=== PATIENT | male | born 1955 | race African-American/Black ===

== ENCOUNTER 2019-07-29 09:34 | Inpatient (IN) ==
--- NOTE | 2019-07-29 09:54 | PROVIDER DOCUMENTATION ---
HPI-Neurological Disorder - General Chief Complaint: Stroke-Like Symptoms Stated Complaint: STROKE SX Time Seen by Provider: 07/29/19 09:40 Source: patient Allergies/Adverse Reactions: Patient Allergies Allergy/AdvReac Type Severity Reaction Status Date / Time No Known Allergies Allergy Verified 03/21/16 01:04 Home Medications: Home Medication List Medication Instructions Recorded Confirmed Last Taken Type Irbesartan [Avapro] 300 mg PO DAILY #30 tablet 11/18/15 03/21/16 11/28/15 Rx Albuterol Sulfate Inhaler 2 puff INH Q6H PRN PRN #1 inhaler 11/29/15 03/21/16 Unknown Rx [Ventolin Hfa] Aspirin 325 mg PO DAILY 11/29/15 03/21/16 01/16/16 History Amlodipine/Valsartan/Hcthiazid 1 tab DAILY 12/06/15 03/21/16 01/16/16 History [Exforge Hct 10-160-12.5 mg Tab] Amlodipine/Valsartan/Hcthiazid 1 each PO DAILY #30 tablet 01/16/16 03/21/16 U nknown Rx [Fkbms-Wqzdb-Vefd 10-160-12.5MG] Hydrocodone/APAP 5 mg/325 mg 1 tab PO DIRECTED 01/16/16 03/21/16 Unknown History [[place]-5] Doxycycline 100 mg PO BID #20 tablet 02/19/16 03/21/16 Unknown Rx Ibuprofen [Motrin] 800 mg PO Q8H PRN PRN #20 tablet 02/19/16 03/21/16 Unknown Rx Tramadol [Ultram] 50 mg PO Q6H PRN PRN #30 tablet 02/19/16 03/21/16 Unknown Rx Cyclobenzaprine [Flexeril] 10 mg PO TID PRN #20 tablet 03/21/16 Unknown Rx Hydrocodone/Acetaminophen [[place] 1 each PO Q4-6H PRN PRN #12 tablet 03/21/16 Unknown Rx 5-325 Tablet] Meloxicam [Mobic] 15 mg PO DAILY PRN #30 tablet 03/21/16 Unknown Rx Clonidine [Catapres] 0.1 mg PO DAILY #30 tablet 08/07/16 Unknown Rx Metronidazole [Flagyl] 500 mg PO BID #14 tablet 08/07/16 Unknown Rx Sulfamethoxazole/Trimethoprim 1 each PO BID #10 tablet 08/07/16 Unknown Rx [Bactrim Ds Tablet] Diphenoxylate/Atropine [Lomotil] 1 each PO BID #8 tablet 11/18/16 Unknown Rx Amlodipine [Norvasc] 5 mg PO DAILY #60 tab 10/31/17 Unknown Rx Methocarbamol [Robaxin] 500 mg PO BID #30 tab 10/31/17 Unknown Rx Prednisone 20 mg PO DIRECTED #18 tab 05/10/19 Unknown Rx - History of Present Illness-Neuro Nature of Presenting Problem: 64 YOM PRESENTS WITH C/O R FACIAL DROOP, R WEAKNESS, SLURRED SPEECH THAT BEGAN AFTER A SYNCOPAL EPISODE ON THURSDAY. HE DENIES HITTING HIS HEAD. HE REPORTS HE IS ON BLOOD THINNERS NOT SURE WHICH ONE AND THERE IS NONE OTHER THAN ASA LISTED ON HIS HOME MEDICATIONS. PMH INCLUDES HTN. HE DENIES HEADACHE, N/V, CP, SOB. HE DOES REPORT MULTIPLE FALLS AND LOSS OF BALANCE SINCE THURSDAY Severity: reports: moderate Onset/Duration: reports: 3 days ago (THURSDAY) Timing: reports: still present Context: reports: facial droop, other (SYNCOPAL EPISODE) Character of Altered Mental Status: reports: unchanged from baseline Any recent trauma/injury?: reports: none Character of Deficits: reports: impaired speech, falling New weakness or altered sensation location:: reports: RUE, RLE, right facial Cognitive Baseline: alert, oriented x3 Gait Baseline: walks without assistance Associated Symptoms: reports: denies symptoms Similar Symptoms Previously?: No Recently seen or treated by another doctor?: No Review of Systems - Adult - REVIEW OF SYSTEMS - ADULT Constitutional: reports: no symptoms reported. denies: see HPI, chills, fever, fatique, night sweats, weight gain, weight loss, other Eyes: reports: no symptoms reported. denies: see HPI, discharge, dry eyes, decreased vision, blurred vision, double vision, eye pain, redness, other Ears, Nose, Mouth & Throat: reports: no symptoms reported. denies: see HPI, ear discharge, ear pain, hearing loss, tinnitus, epistaxis, sinus problem, nose pain, loose teeth, mouth/dental pain, mouth swelling, hoarseness, throat pain, throat swelling, other Cardiovascular: reports: no symptoms reported. denies: see HPI, chest pain, edema, heart murmur, irregular heart rate, orthopnea, palpitations, poor circulation, PND, syncope, other Respiratory: reports: no symptoms reported. denies: see HPI, chronic cough, cou gh, dyspnea on exertion, excessive sputum production, hemoptysis, pleurisy, shortness of breath, wheezing, other Gastrointestinal: reports: no symptoms reported. denies: see HPI, abdominal pain, hematemesis, constipation, diarrhea, difficulty swallowing, frequent heartburn, nausea, poor appetite, rectal bleeding, vomiting, other Genitourinary: reports: no symptoms reported. denies: see HPI, dysuria, discharge, frequency, flank pain, frequent UTI's, hematuria, hesitency, incontinence, urinary retention, urgency, other Musculoskeletal: reports: see HPI, muscle weakness. denies: no symptoms re ported, bone pain, back pain, frequent leg cramps, joint pain, joint swelling, muscle aches, neck pain, other Integumentary: reports: no symptoms reported. denies: see HPI, hives, hair loss, itching, mole changes, nail changes, rash, skin sores/ulcer, skin thickening, other Neurological: reports: see HPI, ataxia, dizziness/vertigo, loss of balance, slurred speech, syncope Psychiatric: reports: no symptoms reported. denies: see HPI, anxiety, anti- depressant use, alcohol/drug dependence, depression, emotional problems, insomnia, panic attacks, suicidal thoughts, other Endocrine: reports: no symptoms reported. denies: see HPI, change in skin pigment, excessive sweating, goiter, cold intolerance, heat intolerance, increased hunger, increased thirst, polyuria, other Hematologic/Lymphatic: reports: no symptoms reported. denies: see HPI, blood clots, easy bruising, low blood count, lymphedema, prolonged bleeding, swollen lymph nodes, transfusions, other Allergic/Immunologic: reports: no symptoms reported. denies: see HPI, allergic reactions, allergic rhinitis, asthma, eczema, food allergy, frequent infections, hay fever, hives, positive PPD, urticaria, other Past History - Adult - PAST MEDICAL HISTORY-ADULT Review of Records: reports: Nursing Assessment Review, Social history reviewed & non-contributory. Major Childhood Illnesses: reports: denies history Cardiovascular: reports: HTN Respiratory: reports: denies history Gastrointestinal: reports: denies history Genitourinary: reports: denies history Musculoskeletal: reports: arthritis, other (right shoulder) Neurological: reports: denies history Endocrine/Immune: reports: denies history Other Conditions: reports: denies history - PRIOR SURGERIES/PROCEDURES Surgical/Procedure History: reports: hernia repair, orthopedic (extremity), other (nose sx) - PRIOR HOSPITALIZATIONS Prior Hospitalizations: reports: none - IMMUNIZATION STATUS Childhood Immunizations: UTD Flu Vaccine: See Nurse Assessment - FAMILY HISTORY Family History: reviewed, not pertinent Physical Exam- Neurological - Physical Exam-Neuro Initial Vital Signs Reviewed: Yes General Appearance: alert, no apparent distress Eye Exam: bilateral eye: normal inspection, PERRL, EOMI HENMT: normocephalic/atraumatic, moist mucous membranes, normal ENT inspection Head Injury: no evidence of injury Neck: non-tender, full range of motion, supple Respiratory: chest non-tender, lungs clear Cardiovascular: normal peripheral pulses, regular rate, rhythm, no edema Abdominal Exam: normal bowel sounds, non tender, soft Lymphatic: no adenopathy Peripheral Pulses: radial (R): 2+, radial (L): 2+ Extremity: non-tender. 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 negative: normal speech Coordination/Gait: negative: normal gait Motor/Sensory: weak motor strength RUE, weak motor strength RLE Neurologic: facial droop, motor weakness Integumentary: normal color, normal turgor, warm/dry Psych/Mental Status: normal mood/affect, oriented x 3 - Glascow Coma Scale Best Eye Response: (4) open spontaneously Best Verbal Response: (5) oriented Best Motor Response: (6) obeys commands Progress - PLAN OF CARE/RESULTS Progress/Plan/Lab Results: Vital Signs - 8 hr 07/29/19 09:38 07/29/19 10:04 07/29/19 10:36 Temperature 98 F Pulse Rate 86 78 Pulse Rate [Sitting] 73 Pulse Rate [Standing] 83 Pulse Rate [Supine] 67 Respiratory Rate 18 17 Blood Pressure 207/110 152/102 Blood Pressure [Sitting] 181/115 Blood Pressure [Standing] 180/107 Blood Pressure [Supine] 178/107 O2 Sat by Pulse Oximetry 95 97 Laboratory Results - last 24 hr 07/29/19 07/29/19 07/29/19 09:55 09:55 09:55 WBC 9.17 RBC 4.08 L Hgb 14.1 Hct 41.5 L MCV 101.7 H MCH 34.6 H MCHC 34.0 RDW Std Deviation 12.0 Plt Count 177 MPV 11.1 H Immature Gran % (Auto) 0.1 Neut % (Auto) 56.3 Lymph % (Auto) 32.0 Marshall % (Auto) 8.7 Eos % (Auto) 2.6 Baso % (Auto) 0.3 Immature Gran # (Auto) 0.01 Neut # (Auto) 5.16 Lymph # (Auto) 2.93 Marshall # (Auto) 0.80 H Eos # (Auto) 0.24 Baso # (Auto) 0.03 PT INR PTT (Actin FS) Sodium 141 Potassium 4.0 Chloride 108 H Carbon Dioxide 21 L Anion Gap 12 BUN 10 Creatinine 1.0 Estimated GFR/1.73 m2 > 60 BUN/Creatinine Ratio 10 Glucose 149 H Calculated Osmolality 283 Calcium 8.8 Total Bilirubin 0.60 AST 20 ALT 18 Alkaline Phosphatase 118 Troponin T < 0.010 Total Protein 7.1 Albumin 4.3 Globulin 3.0 Albumin/Globulin Ratio 2.0 07/29/19 09:55 WBC RBC Hgb Hct MCV MCH MCHC RDW Std Deviation Plt Count MPV Immature Gran % (Auto) Neut % (Auto) Lymph % (Auto) Marshall % (Auto) Eos % (Auto) Baso % (Auto) Immature Gran # (Auto) Neut # (Auto) Lymph # (Auto) Marshall # (Auto) Eos # (Auto) Baso # (Auto) PT 12.9 INR 0.93 PTT (Actin FS) 34.1 Sodium Potassium Chloride Carbon Dioxide Anion Gap BUN Creatinine Estimated GFR/1.73 m2 BUN/Creatinine Ratio Glucose Calculated Osmolality Calcium Total Bilirubin AST ALT Alkaline Phosphatase Troponin T Total Protein Albumin Globulin Albumin/Globulin Ratio Orders Category Date Time Status Admit - [facility] Routine AdmDCTranf 07/29/19 10:49 Active Activity - Strict Bedrest ORDERED Care 07/29/19 10:49 Active Cardiac Monitoring DIRECTED Care 07/29/19 09:43 Active Finger Stick Blood Sugar (ED) DIRECTED Care 07/29/19 09:43 Active Neurological Check ORDERED Care 07/29/19 10:49 Active Orthostatic Vital Signs NOW Care 07/29/19 09:44 Active Oxygen Therapy- ED Nursing DIRECTED Care 07/29/19 09:43 Active Resuscitation Status Routine Care 07/29/19 10:49 Ordered Saline Loc DIRECTED Care 07/29/19 10:49 Active Saline Loc NOW Care 07/29/19 09:43 Active Vital Signs Order ROUTINE Care 07/29/19 10:49 Active Z-Document. for Tele Applied ORDERED Care 07/29/19 10:50 Active NPO Diet 07/29/19 10:50 Active CHEST-PORTABLE [RAD] Stat Exams 07/29/19 09:[address] HEAD W/O CONTRAST [CT] Stat Exams 07/29/19 09:43 Completed CBC WITH ELECTRONIC DIFF [HEME] Stat Lab 07/29/19 09:55 Completed COMPREHENSIVE METABOLIC PANEL [CHEM] Stat Lab 07/29/19 09:55 Completed PROTIME WITH INR [COAG] Stat Lab 07/29/19 09:55 Completed PTT [COAG] Stat Lab 07/29/19 09:55 Completed TROPONIN T Stat Lab 07/29/19 09:55 Completed URINALYSIS W/POSS RFLX CULT [URINALYSIS] Stat Lab 07/29/19 09:[address] Uncollected URINE DRUG SCREEN PL Stat Lab 07/29/19 09:43 Uncollected Telemetry [OM.EQ] Routine Oth 07/29/19 10:49 Active EKG [EKG] Stat Ther 07/29/19 09:43 Draft Transfer/Admit Order [TRANSFER] Routine Transfer 07/29/19 10:50 Ordered Result Diagrams: 07/29/19 09:55 07/29/19 09:55 - EKG 1 Time of EKG reading by physician:: 09:50 EKG Read and Signed by:: Sanju Javier EKG Interpretation (*Must complete 3 of following elements*): Abnormal Rate: 81 Rhythm: NSR [place]: normal QRS: normal FL Interval: normal ST Wave: non-specific ST changes Prior EKG Comparison: unchanged from prior (NO LVH CRITERIA ON CURRENT, NONSPECIFIC ST CHANGES STILL PRESENT - NO SIGNIFICANT CHANGE) - XRAY 1 XRAY Study: Chest Impression: See EMR Report (EXAM: CHEST-PORTABLE HISTORY: STROKE SYMPTOMS TECHNIQUE: Single view COMPARISON: 09/27/2018 FINDINGS: The lungs are well expanded. The heart is not enlarged. The vessels are not distended. There are no infiltrates. No effusion identified. Right basilar granuloma. IMPRESSION: Negative exam. Electronically signed by Ryan Guevara 07/29/2019 10:34 AM 07/29/19 1034 Interpreting Physician: Ryan Guevara MD Dictated Date/Time: 07/29/19 1034 cc: Christie Graves; None,PCP) - CT/MRI 1 CT Study: Head Impression: See EMR Report (EXAM: CT HEAD W/O CONTRAST HISTORY: STROKE SYMPTOMS TECHNIQUE: CT head without contrast COMPARISON: 12/06/2015 FINDINGS: No parenchymal hemorrhage. No epidural or subdural hematoma. No subarachnoid hemorrhage. There are mild chronic microvascular ischemic changes. No mass identified on this noncontrasted exam. No hydrocephalus. No sinus opacification. IMPRESSION: 1.No hemorrhage 2.Chronic microvascular ischemic changes. If treatment options would be impacted and clinical concern persists then a follow-up MRI may be beneficial. This exam was performed using automated exposure control, adjustment of mA or kV according to patient size, and/or use of iterative reconstruction technique. Electronically signed by Jose Guevara 07/29/2019 10:37 AM 07/29/19 1037 Interpreting Physician: Ryan Guevara MD Dictated Date/Time: 07/29/19 1034) - CONSULTS/PCP/HOSPITALIST Notification #1 *Consult/PCP/Hospitalist*: DR ASHLEY Time Discussed: 10:52 Consult Disposition: Admit (ADMIT TO [facility], OUT OF WINDOW FOR INTERVENTION) Departure - Departure Date of Disposition Decision: 07/29/19 Time of Disposition Decision: 10:53 DIAGNOSIS: CVA (cerebral vascular accident) Disposition: HOME 01 Certified Medical Emergency: Emergent Condition: Stable Referrals and Follow-Ups: None,PCP [Primary Care Provider] - - Critical Care Note This patient required my direct & personal management of CC.: No Attestation - Physician/ ELI Attestation Patient care was provided by Advanced Practice Provider:: Yes Advanced Practice Provider:: Christie Graves Advanced Practice Provider documentation review:: The Mid-level provider documentation, treatment plan and medical decision making was reviewed by the physician who agrees with all treatment and medical decision making by the P. The physician spent face to face time with patient:: No Advanced Practice Provider documentation review:: Supervising physician onsite and consulted in the evaluation and care of this patient. The physician did not have a face to face encounter with the patient. - NIH Stroke Scale NIH Type: Initial Evaluation Level of Consciousness: 0-Alert LOC Questions (ask month and age): 0-Answers Both Correctly LOC Commands (ask to open & close eyes;make a fist, let go): 0-Obeys Both C orrectly Best Gaze (horizontal eye movement): 0-Normal Visual (use finger movement, counting or visual threat): 0-No Visual Loss Facial Palsy (show teeth or raise eyebrows & close eyes tght: 2-Partial Paralysis Motor Function-left arm: 0-Normal Motor Function-right arm: 1-Drift Motor Function-left le-Normal Motor Function-right le-Drift Limb Ataxia(mybbja-yjcm-kxibxn, or heel to gramajo): 1-Present in one limb Sensory(pin prick to face,arms,trunk,legs-compare side/side): 0-No Ataxia Best Language(name item/read sentence.Ex-Down to Earth): 0-No Aphasia Dysarthria(Pt read words or say words Ex.Mama,Tip-Top,Thanks: 1-Mild-Mod Slurring Words Extinction and Inattention: 0-Normal NIH Total Score: 6 Stroke tPA Guidelines - Inclusion Criteria for IV tPA 18 years old or older: Yes Ischemic stroke with measurable deficit: Yes Onset <3 hours ago *OR* 3-4.5 hours ago: No (SYMPTOMS BEGAN ON THURSDAY PER PATIENT)
[2019-07-29 10:09] LABS: BASO# 0.03 X1000 (0.0-0.2); BASO% 0.3 % (0.0-0.8); EOS# 0.24 X1000 (0.0-0.7); EOS% 2.6 % (0.0-10.0); HEMATOCRIT 41.5 % (42.0-52.0); HEMOGLOBIN 14.1 g/dL (14.0-18.0); IMM GRAN# 0.01 X1000 (0.0-0.04); IMM GRAN% 0.1 % (0.0-0.5); LYMPH# 2.93 X1000 (1.2-3.4); MCH 34.6 PG (27-31); MCV 101.7 FL (81-99); MONO% 8.7 % (1.7-9.3); MPV 11.1 FL (7.4-10.4); NEUT# 5.16 X1000 (1.4-6.5); NEUT% 56.3 % (42.2-75.2); PLT 177 X1000 (130-400); RBC 4.08 XMIL (4.7-6.1); WBC 9.17 X1000 (4.8-10.8)
[2019-07-29 10:17] LABS: INR 0.93; PROTIME 12.9 Seconds (11.0-16.0)
[2019-07-29 10:18] LABS: PTT 34.1 Seconds (22.3-41.8)
[2019-07-29 10:26] LABS: AGAP 12; ALBUMIN 4.3 g/dL (3.5-5.0); ALKALINE PHOSPHATASE 118 U/L (32-122); BUN 10 mg/dL (8-22); CALCIUM 8.8 mg/dL (8.8-10.2); CHLORIDE 108 mmol/L (98-107); COSMO 283; ESTIMATED GFR > 60; GLUCOSE 149 mg/dL (70-104); GOT 20 U/L (10-34); GPT 18 U/L (10-44); SODIUM 141 mmol/L (136-145); TCO2 21 mmol/L (25-35); TOTAL PROTEIN 7.1 g/dL (6.3-8.3)
--- NOTE | 2019-07-29 10:31 | EKG Report ---
Test Performed on : 07/29/2019 09:48:12 AM Test Reason : STROKE SYMPTOMS Blood Pressure : / mmHG Vent. Rate : 081 BPM Atrial Rate : 081 BPM P-R Int : 156 ms QRS Dur : 088 ms QT Int : 388 ms P-R-T Axes : 035 027 -36 degrees QTc Int : 450 ms Normal sinus rhythm. Nonspecific T wave abnormality Abnormal ECG When compared with ECG of 27-SEP-2018 09:08, QT has lengthened Unconfirmed Result
--- NOTE | 2019-07-29 10:36 | Diag Imaging Result Doc PS360 ---
EXAM: CHEST-PORTABLE HISTORY: STROKE SYMPTOMS TECHNIQUE: Single view COMPARISON: 09/27/2018 FINDINGS: The lungs are well expanded. The heart is not enlarged. The vessels are not distended. There are no infiltrates. No effusion identified. Right basilar granuloma. IMPRESSION: Negative exam. Electronically signed by Ryan Guevara 07/29/2019 10:34 AM
--- NOTE | 2019-07-29 10:40 | Diag Imaging Result Doc PS360 ---
EXAM: CT HEAD W/O CONTRAST HISTORY: STROKE SYMPTOMS TECHNIQUE: CT head without contrast COMPARISON: 12/06/2015 FINDINGS: No parenchymal hemorrhage. No epidural or subdural hematoma. No subarachnoid hemorrhage. There are mild chronic microvascular ischemic changes. No mass identified on this noncontrasted exam. No hydrocephalus. No sinus opacification. IMPRESSION: 1.No hemorrhage 2.Chronic microvascular ischemic changes. If treatment options would be impacted and clinical concern persists then a follow-up MRI may be beneficial. This exam was performed using automated exposure control, adjustment of mA or kV according to patient size, and/or use of iterative reconstruction technique. Electronically signed by Ryan Guevara 07/29/2019 10:37 AM
[2019-07-29 11:15] LABS: URINE SOURCE CLEAN CATCH
[2019-07-29 11:18] LABS: BILIRUBIN URINE NEGATIVE (NEGATIVE); BLOOD URINE NEGATIVE (NEGATIVE); COLOR YELLOW; GLUCOSE URINE NEGATIVE (NEGATIVE); KETONE URINE NEGATIVE (NEGATIVE); LEUKOCYTES URINE LARGE (NEGATIVE); NITRITE URINE NEGATIVE (NEGATIVE); PROTEIN URINE TRACE mg/dL (NEGATIVE); SP GRAVITY URINE 1.031; TURBIDITY URINE CLEAR (CLEAR); UR EPITHELIAL CELLS <10 /HPF (<10); URINE BACTERIA NEGATIVE /HPF; URINE RBC <10 /HPF (<10); URINE WBC TNTC /HPF (<10); UROBILINOGEN URINE 3 mg/dL (NORMAL)
[2019-07-29 11:25] LABS: UR AMPHETAMINES QUAL NONE DETECTED (NONE DETECT); UR BARBITUATES QUAL NONE DETECTED (NONE DETECT); UR BENZODIAZEPIN QUAL NONE DETECTED (NONE DETECT); UR CANNABINOIDS QUAL NONE DETECTED (NONE DETECT); UR COCAINE QUAL NONE DETECTED (NONE DETECT); UR METHADONE QUAL NONE DETECTED (NONE DETECT); UR METHAMPHETAMINE QUAL NONE DETECTED (NONE DETECT); UR OPIATES QUAL PRESUMPTIVE POSITIVE (NONE DETECT); UR OXYCODONE QUAL NONE DETECTED (NONE DETECT); UR PCP QUAL NONE DETECTED (NONE DETECT); UR PROPOXYPHENE QUAL NONE DETECTED (NONE DETECT); UR TCA QUAL NONE DETECTED (NONE DETECT)
[2019-07-29] MEDS ORDERED: NS 1,000 ML IV ONE (11:58)
[2019-07-29] MEDS ORDERED: ASPIRIN PO ONE (11:58)
[2019-07-29] MEDS ORDERED: TYLENOL PO PRN (12:35)
[2019-07-29] MEDS ORDERED: APRESOLINE IV PRN (12:35)
[2019-07-29] MEDS ORDERED: ZOFRAN IV PRN (12:35)
[2019-07-29] MEDS ORDERED: ROCEPHIN 1 GM in NS 50 ML IV SCH (13:00)
--- NOTE | 2019-07-29 14:55 | Diag Imaging Result Doc PS360 ---
EXAM: MRI BRAIN W/O CONTRAST 07/29/2019 HISTORY: CVA TECHNIQUE: T1 sagittal and axial, T2, FLAIR, DWI axial and coronal gradient echo. COMMENT: There are no previous MRI studies. There is a focus of restricted diffusion in the posterior limb of the internal capsule and jean radiata region on the left. There is also increased T2-weighted signal intensity in the periventricular white matter particularly around the atria of the lateral ventricles. There is no evidence of bleed or abnormal extra-axial fluid collection. IMPRESSION: Acute or subacute lacunar infarction in the left deep white matter as described. Chronic ischemic changes. The findings were discussed with MANJEET Bernstein at 07/29/2019 2:52 PM. Electronically signed by Augustin Betancourt 07/29/2019 2:52 PM
--- NOTE | 2019-07-29 18:44 | Vascular Study Report ---
EXAM: Carotid Ultrasound 07/29/2019 HISTORY: CVA TECHNIQUE: Carotid Doppler ultrasound COMMENT: There is no appreciable atheromatous plaque formation and no significant hemodynamically significant stenosis is present by velocity criteria. There is antegrade flow in both vertebral arteries. IMPRESSION: No evidence of significant stenosis (0-39%.) Electronically signed by Augustin Betancourt 07/29/2019 6:41 PM
[2019-07-30] MEDS ORDERED: NORCO-5 PO PRN (07:50)
[2019-07-30] MEDS ORDERED: NORVASC PO SCH ×2 (09:00)
[2019-07-30 11:47] VITALS: BP 177/86
--- NOTE | 2019-07-30 11:55 | ECHO REPORT ---
ORDER DATE: 07/29/2019 ECHOCARDIOGRAPHIC MEASUREMENTS: 1. Interventricular septum 1.4 2. Left ventricular posterior wall 1.4. 3. Diastolic diameter 5.2. 4. Left atrium 4. 5. Aorta 4.3. 6. Aortic valve leaflets are trileaflet. 7. Mitral valve was normal. 8. Tricuspid valve was normal. 9. Pulmonic valve was normal. There is mild pulmonary regurgitation. 10. There is left atrial enlargement. 11. There is mild mitral regurgitation. 12. There is mild diastolic dysfunction. 13. Normal left ventricular cavity size. Moderate concentric left ventricular hypertrophy. Estimated ejection fraction of 55% to 60%. 14. There is no pericardial effusion or obvious intracardiac mass or thrombus seen. cc: MD Jason Amezcua MD
--- NOTE | 2019-07-31 04:21 | HISTORY AND PHYSICAL ---
CHIEF COMPLAINT: Stroke-like symptoms. HISTORY OF PRESENT ILLNESS: The patient is a 64-year-old male who presented to the ER with slurred speech that began after a syncopal episode 2 days ago. After the slurred speech did not improve his family finally convinced him to come to the ER. Patient denies any head injury. States that he has been on blood thinners in the past, but notes all he takes now is aspirin. ALLERGIES: No known drug allergies. MEDICATIONS: Do not have an accurate medication list, but he does take blood pressure medicine, pain medicine occasionally and thinks he takes Norvasc and clonidine. PAST MEDICAL HISTORY: Significant for hypertension, arthritis, right shoulder pain. He has had a stroke in the past. Reports surgery for a hernia. FAMILY HISTORY: Positive for hypertension. SOCIAL HISTORY: The patient notes he does smoke occasionally. He does not drink. He is . REVIEW OF SYSTEMS: As noted above. Positive slurred speech with a syncopal episode. Denies any dysuria, urinary frequency, urgency. Denies any hesitancy, constipation, melena, hematochezia. Denies any trouble swallowing. Denies any blurred vision, headaches, fevers, chills, cough, or congestion. Notes that he has been dizzy, had a loss of balance during this episode. PHYSICAL EXAMINATION: VITAL SIGNS: Reviewed. Temperature 98 degrees, pulse 86 respiratory rate 18, BP 207/110. Saturation 95% on room air. GENERAL: Patient is awake, alert. He is in no current respiratory distress. HEENT: Normocephalic. NECK: Supple. CARDIOVASCULAR: Regular rate. CHEST: Clear and unlabored. ABDOMEN: Soft, nondistended, nontender. EXTREMITIES: Moves all extremities. NEUROLOGIC: He is noted to have some right-sided motor weakness as well as facial droop and slurred speech. LABORATORIES: CBC, CMP essentially normal with glucose of 149. CT head negative. ASSESSMENT: 1. Acute cerebrovascular accident. 2. Hypertension. 3. Hyperglycemia. PLAN: We are going to continue patient in the hospital. Continue to follow. Check an MRI, carotid echo. Further orders as needed. cc: Jason Crowley MD
--- NOTE | 2019-07-31 14:44 | DISCHARGE SUMMARY ---
ADMISSION DATE: 07/29/2019 DISCHARGE DATE: 07/30/2019 DISCHARGE DIAGNOSES: 1. Acute lacunar infarct. 2. Hypertension. We have increased his Norvasc. 3. Urinary tract infection. 4. Altered speech, improved. CONSULTATIONS: None. PROCEDURES: None. BRIEF HOSPITAL COURSE: The patient is a very pleasant gentleman who was admitted to the hospital secondary to speech delay. Unfortunately, he waited several days before he came to the hospital. Thankfully, during the hospital stay, his carotid was normal, echo was normal. His MRI did demonstrate an acute versus subacute lacunar infarct. His speech continued to improve. He had no trouble swallowing. He had no other focal deficit. DISPOSITION: The patient will be discharged home. We have increased his Norvasc. We discussed with patient that he needs to be on cholesterol medication, but he declined currently. Did discuss with him that he needs to follow up outpatient with treatment facility of choice to recheck his blood pressure as we have increased Norvasc to 10 mg, and certainly should consider taking cholesterol medications. TIME SPENT: Greater than 30 minutes were spent in total care. cc: Jason Crowley MD
== END 2019-07-30 13:01 | disposition home or self-care (01) | DRG 65 ==
LOC: P.ED 09:34 → SUATTDRO 09:35 → P.MEDSURG 11:29
PROVIDERS: ADMIT Family Medicine; ATTEND Family Medicine